=== PATIENT | male | born 1985 | race Caucasian/White ===

== ENCOUNTER 2017-10-09 18:27 | Emergency (ER) | payer BC ==
[~2017-10-09] VITALS: Ht 180.3 cm; Wt 89.0 kg
[2017-10-09 18:36] VITALS: BP 113/75; PULSE 66; RESP 16; TEMP 98.3; O2SAT 99
--- NOTE | 2017-10-09 19:20 | PD ---
HPI Chief Complaint: Chest Pain Time Seen by Provider: 19:17 Travel History International Travel<30 days: No Contact w/Intl Traveler<30days: No Traveled to known affect area: No History of Present Illness HPI This is a 32-year-old male with no significant past medical history, presents today with an episode of left-sided sharp chest pain that lasted roughly 10 seconds. Patient is visiting here from [place]. He and his state that they have been here for 2 days. They drove down here from [place] and reports that they drove straight through. There is no significant shortness of breath. There is no diaphoresis. Patient reports the pain is in 9 out of 10 when it was present. There is no pain at this time. Patient has no history of hypertension, coronary artery disease, hyperlipidemia. He smokes an occasional cigar. The patient denies any pain at this time. He reports that it does not hurt when he moves from side to side. There is no pleuritic nature to the pain. PFSH Past Medical History Diminished Hearing: No Influenza Vaccination: No ?: Not Social History Alcohol Use: Yes (rare) Tobacco Use: Yes Substance Use: No Allergies-Medications (Allergen,Severity, Reaction): Coded Allergies: No Known Allergies (Unverified , 10/09/17) Review of Systems Except as stated in HPI: all other systems reviewed are Neg General / Constitutional: No: Fever, Chills HENT: No: Headaches, Neck Pain Cardiovascular: Positive: Chest Pain or Discomfort, No: Palpitations, Tachycardia Respiratory: No: Cough, Shortness of Breath Gastrointestinal: No: Nausea, Vomiting, Abdominal Pain Musculoskeletal: No: Weakness, Pain Neurologic: No: Weakness, Dizziness, Headache Physical Exam Narrative GENERAL: Well-developed well-nourished male in no acute respiratory distress. SKIN: Focused skin assessment warm/dry. HEAD: Atraumatic. Normocephalic. EYES: No scleral icterus. No injection or drainage. ENT: No nasal bleeding or discharge. Mucous membranes pink and moist. NECK: Trachea midline. Supple. CARDIOVASCULAR: Regular rate and rhythm. No murmur appreciated. RESPIRATORY: No accessory muscle use. Clear to auscultation. Breath sounds equal bilaterally. GASTROINTESTINAL: Abdomen soft, non-tender, nondistended. Hepatic and splenic margins not palpable. MUSCULOSKELETAL: No obvious deformities. No clubbing. No cyanosis. No edema. NEUROLOGICAL: Awake and alert. No obvious cranial nerve deficits. Motor grossly within normal limits. Normal speech. Data Data Last Documented VS Vital Signs Date Time Temp Pulse Resp B/P (MAP) Pulse Ox O2 Delivery O2 Flow Rate FiO2 10/09/17 18:36 98.3 66 16 113/75 (88) 99 Orders Orders Basic Metabolic Panel (Bmp) (10/09/17 19:17) D-Dimer (10/09/17 19:17) Labs Laboratory Tests Test 10/09/17 19:27 D-Dimer Quantitative (PE/DVT) LESS THAN 0.19 MG/L FEU Blood Urea Nitrogen 8 MG/DL Creatinine 0.85 MG/DL Random Glucose 98 MG/DL Calcium Level 8.7 MG/DL Sodium Level 136 MEQ/L Potassium Level 4.0 MEQ/L Chloride Level 104 MEQ/L Carbon Dioxide Level 29.1 MEQ/L Anion Gap 3 MEQ/L Estimat Glomerular Filtration Rate 106 ML/MIN MDM Medical Decision Making Medical Screen Exam Complete: Yes Emergency Medical Condition: Yes Differential Diagnosis Muscular skeletal pain versus pulmonary embolus versus ACS Narrative Course 32-year-old male presents with 10 seconds of left-sided pain in his lateral chest wall. Patient had no other symptoms other than the pain. He states that when happened when he was lifting his hands up in the air. T the only concern was that he had driven down here from [place]. They driven straight through. Patient's EKG showed no evidence of acute ST elevation or depression. Patient' s BMP was normal. D-dimer was ordered which was normal. I informed patient that with a normal d-dimer t the possibility of him having a pulmonary embolus is nearly 0. I believe this is muscular skeletal in etiology. He is instructed to use Motrin as needed. He question whether or not he could go to the [employer] [facility] I said absolutely. He will be discharged told to follow-up with his primary care doctor when he returns back to [place]. Diagnosis Primary Impression: Atypical chest pain Additional Instructions: Motrin as needed. Disposition: 01 DISCHARGE HOME Condition: Stable Mitchell Hardwick MD Oct 09, 2017 19:20
[2017-10-09 19:56] LABS: CALCIUM 8.7 MG/DL (8.5-10.1)
[2017-10-09 19:57] LABS: BICARBONATE 29.1 MEQ/L (21.0-32.0)
[2017-10-09 20:00] LABS: CREATININE 0.85 MG/DL (0.60-1.30)
[2017-10-09 21:37] VITALS: BP 117/65
--- NOTE | 2017-10-10 14:37 | EKG ---
Date Performed: 10/09/2017 Time Performed: 18:28:47 PTAGE: 32 years EKG: Sinus rhythm NORMAL ECG INTERPRETATION BASED ON A DEFAULT AGE OF 42 YEARS NO PREVIOUS TRACING DOCTOR: Emir Hendrickson Interpretating Date/Time 10/10/2017 14:33:58
== END 2017-10-09 21:39 | disposition home or self-care (01) ==
LOC: PHEFT 18:27
DX: R07.89 Other chest pain (principal); Z72.0 Tobacco use
CPT/HCPCS: 80048; 85379; 93005; 99284